=== PATIENT | male | born 1965 | race Caucasian/White ===

== ENCOUNTER → 2019-03-26 | Outpatient (CLI) | payer BC ==
--- NOTE | 2019-03-26 13:55 | CT ---
EXAMINATION TYPE: CT lumbar spine wo con DATE OF EXAM: 03/26/2019 1:46 PM COMPARISON: None HISTORY: Spondylosis. CT DLP: 900 mGycm Automated exposure control for dose reduction was used. Unenhanced CT of the lumbar spine was performed. Bone and soft tissue window settings are submitted as well as coronal and sagittal reconstructions. L1-L2: Normal disc space height. No disc herniation protrusion or central stenosis. No facet joint arthropathy. No evidence for foraminal encroachment. L2-L3: Normal disc space height. No disc herniation protrusion or central stenosis. No facet joint arthropathy. No evidence for foraminal encroachment. L3-L4: Mild to moderate degenerative disc disease with circumferential disc bulging and mild effaceme nt of thecal sac. Mild facet joints. Mild hypertrophy. Mild bilateral foraminal encroachment suggesti on mild canal stenosis. L4-L5: Moderate to severe degenerative disc disease with central broad-based disc bulging. Chronic ap pearing endplate deformity of L5. Mild bilateral foraminal encroachment greater on the left. Borderli ne canal stenosis. There is mild effacement L5-S1: Severe degenerative disc disease with discogenic marrow changes and vacuum disc. Mild broad-ba sed disc bulging and borderline canal stenosis and mild bilateral foraminal encroachment. IMPRESSION: 1. Degenerative disc disease L3-4, L4-5 and L5-S1 with most marked findings at L5-S1. 2. Chronic appearing superior endplate deformity of L5. If there is concern for infectious etiology c orrelate with MRI with contrast 3. Mild bilateral foraminal encroachment and mild canal stenosis L3-L4 due to hypertrophic changes an d circumferential disc bulging. 4. Borderline canal stenosis L5-S1 due to broad-based disc bulging. 5. Multilevel foraminal encroachment as discussed above.
== END | disposition home or self-care (01) ==
LOC: RADCTMAIN 13:26
PROVIDERS: ATTEND Physical Medicine & Rehabilitation
DX: M48.061 Spinal stenosis, lumbar region without neurogenic claudication (principal); M51.36 Other intervertebral disc degeneration, lumbar region; M51.37 Other intervertebral disc degeneration, lumbosacral region; M51.86 Other intervertebral disc disorders, lumbar region; M51.87 Other intervertebral disc disorders, lumbosacral region; Z95.0 Presence of cardiac pacemaker
CPT/HCPCS: 72131

== ENCOUNTER → 2019-05-01 | Outpatient (CLI) | payer BC ==
--- NOTE | 2019-05-04 09:37 | CT ---
EXAMINATION TYPE: CT cervical spine wo con DATE OF EXAM: 05/01/2019 COMPARISON: None HISTORY: Chronic neck pain, no injury. CT DLP: 673.[address] of the cervical spine was performed with bone and soft tissue window settings submitted . Coronal and sagittal reconstruction is obtained. There is reversal of normal cervical lordosis which can be seen in patients with muscle spasticity. T here is curvature convex to the left. C2-3: Within normal limits. C3-4: Within normal limits C4-5: Mild degenerative disc space narrowing. Ventral spondylosis. Minimal posterior disc bulge. No d isc herniation or central stenosis. No foraminal encroachment. Mild left foraminal encroachment relat ed to degenerative change of the cervical apophyseal joint. C5-6: Moderate to severe degenerative narrowing of ventral and dorsal spondylosis. Posterior disc bul ge with partial encapsulating spur resulting in disc endplate complex. Mild effacement of the ventral thecal sac without tenisha disc herniation. Constriction of the thecal sac with mild central stenosis difficult to exclude at this level. Mild bilateral foraminal encroachment identified. C6-7: Mild to moderate degenerative disc space narrowing. Ventral and dorsal spondylosis with disc en dplate complex. Left foraminal encroachment. No central stenosis or disc herniation. C7-T1: Within normal limits. IMPRESSION: 1. Multilevel degenerative disc disease greatest at C5-6 and C6-7. At C5 6I cannot exclude a borderli ne to mild central stenosis. Bilateral foraminal encroachment as outlined above.
== END | disposition home or self-care (01) ==
LOC: RADCTMAIN 16:07
PROVIDERS: ATTEND Physical Medicine & Rehabilitation
DX: M50.322 Other cervical disc degeneration at C5-C6 level (principal)
CPT/HCPCS: 72125

== ENCOUNTER 2024-09-21 09:53 | Day surgery (SDC) | payer BC, MEDICARE ==
[2024-09-16 10:27] VITALS: BMI 34.4
[~2024-09-21 09:53] MED LIST: ceFAZolin 1 GM in SODIUM CHLORIDE 0.9% IRRIG BTL 250 ML IRRIGATION PRN
[2024-09-21] MEDS: IV FLUID CONTINUATION 1,000 ML IV ONE (10:47)
[2024-09-21] MEDS: SODIUM CHLORIDE 0.9% 1,000 ML IV SCH (10:59)
[2024-09-21 11:09] VITALS: RESP 16; TEMP 97.9
[2024-09-21 11:15] LABS: Basophils # (A) 0.04 10*3/uL (0.00-0.10); Basophils % (A) 0.6 %; Eosinophils # (A) 0.19 10*3/uL (0.04-0.35); Eosinophils % (A) 2.8 %; HCT 40.8 % (39.6-50.0); HGB 14.1 g/dL (13.0-17.0); Lymphocytes # (A) 2.35 10*3/uL (0.90-5.00); Lymphocytes % (A) 35.1 %; MCH 29.6 pg (27.0-32.0); MCHC 34.6 g/dL (32.0-37.0); MCV 85.5 fL (80.0-97.0); Mean Platelet Volume 8.6 fL (9.5-12.2); Monocytes # (A) 0.44 10*3/uL (0.20-1.00); Monocytes % (A) 6.6 %; Neutrophils # (A) 3.66 10*3/uL (1.80-7.70); Neutrophils % (A) 54.6 %; Platelet Count 256 10*3/uL (140-440); RBC 4.77 10*6/uL (4.40-5.60); RDW 11.9 % (11.5-14.5)
[2024-09-21 11:32] LABS: African American GFR (CKD) >90 (>60 ml/min/1.73 sqM); Anion Gap 6 mmol/L; Blood Urea Nitrogen 13 mg/dL (9-20); Calcium 9.6 mg/dL (8.4-10.2); Carbon Dioxide 27 mmol/L (22-30); Chloride 106 mmol/L (98-107); Glucose 103 mg/dL (74-99); Non-African American GFR(CKD) >90 (>60 ml/min/1.73 sqM); Potassium 4.1 mmol/L (3.5-5.1); Sodium 139 mmol/L (137-145)
[2024-09-21] MEDS: MIDAZOLAM 2 MG/2 ML VIAL IVP ONE ×2 (12:19→12:28)
[2024-09-21] MEDS: ceFAZolin 2 GM in DEXTROSE 5% IN WATER 50 ML IVPB PRN (12:20)
[2024-09-21] MEDS: fentaNYL (PF) 50 MCG/ML 2 ML AMP IVP ONE ×2 (12:23→12:35)
[2024-09-21] MEDS: LIDOCAINE 1% INJ 10MG/ML (20 ML MDV) SQ ONE ×2 (12:31→12:45)
--- NOTE | 2024-09-21 13:11 | P.PCN ---
Description of Procedure: CARDIOLOGY PROCEDURE NOTE Mortgage Analyst: Dr. Travis Maldonado Procedure performed: Dual chamber permanent pacemaker generator change Site: Left subclavian Indications: Sick Sinus Syndrome, KARLI Complications: None Blood Loss: Minimal Description of Procedure: After the risks, benefits, and alternatives of the above-mentioned procedure was explained in detail with the patient, informed consent was obtained. The patient was taken to the cardiac catheterization suite where the left subclavian area was sterily prepped and draped in the usual fashion. Patient was given IV Versed and fentanyl for sedation. The skin over the existing pulse generator was infiltrated with lidocaine. An incision was made in the skin and was deepened until the pectoral fascia was exposed. Hemostasis was obtained. The existing pulse generator was pulled out of the pocket. The leads were disconnected and were checked for thresholds. The existing leads were then inserted into the appropriate position into the new generator. They were then secured with the setscrew provided. The leads and generator were inserted into the pocket with the leads posterior. The subcutaneous tissue was approximated utilizing #2.0 and 3.0 vicryl in an interrupted stitch fashion. The dermal layer was approximated utilizing #4.0 vicryl. The area was cleansed with sterile saline and dried. A sterile 4x4 dressing was applied and the patient was transferred to the post catheterization holding area in stable and satisfactory condition. The patient tolerated the procedure well. Generator Data Laboratory Coordinator: [employer] Brand: [id number] Lawler XT DR MRI Model #: [id number] Serial#: [id number] Right Atrial Bipolar Lead Data: Type: Active fixation lead Laboratory Coordinator: [employer] Model#: [id number] Serial Number: [id number] Right Ventricular Bipolar Lead Data: Type: Active fixation lead Laboratory Coordinator: [employer] Model #: [id number] Serial #: [id number] Stimulation Thresholds: Right atrial bipolar lead pacing and sensing thresholds Voltage: 0.7 Impedance: 456 ohms P-wave sensin.5 mV Right Ventricular bipolar lead pacing and sensing thresholds Pulse Width: 0.4ms Voltage: 2.2 volts Impedance: 494 ohms R-wave sensin mV Parameter Setting: Pacing mode is AAIR<=>DDDR Lower rate 60 bpm Upper rate 130 bpm Impressions: 1. Successful generator change of a dual chamber permanent pacemaker in the left pectoral site. Plan: 1. Routine post procedure care will be instituted as well as outpatient follow- up surveillance.
[2024-09-21] MEDS ORDERED: ALPHA IV SCH (13:15)
[2024-09-21] MEDS ORDERED: PROTEINASE INHIBITOR IV SCH (13:15)
[2024-09-21] MEDS: ACETAMINOPHEN TAB 325 MG TAB PO PRN (14:46)
[2024-09-21 15:44] VITALS: BP 132/82; PULSE 78
[2024-09-22] MEDS ORDERED: METOPROLOL SUCCINATE (ER) 100 MG TAB.ER.24H PO SCH (09:00)
== END 2024-09-21 15:41 | disposition home or self-care (01) ==
LOC: CATHEP 09:53
PROVIDERS: ATTEND Internal Medicine
DX: Z45.010 Encounter for checking and testing of cardiac pacemaker pulse generator [battery] (principal); I49.5 Sick sinus syndrome; I48.0 Paroxysmal atrial fibrillation; I10 Essential (primary) hypertension
CPT/HCPCS: 33228; 80048; 85025; C1785; J2250; J0690; J2003; J3010